=== PATIENT | male | born 1990 | race Caucasian/White ===

== ENCOUNTER 2024-06-16 17:26 | Emergency (ER) | payer OTHER, SELFPAY ==
[2024-06-16 17:39] VITALS: BP 146/99; PULSE 67; RESP 16; TEMP 36.9; O2SAT 97; BMI 27.0
--- NOTE | 2024-06-16 17:54 | ED.GENADULT ---
HPI - General Adult General Chief complaint: Chest Pain Stated complaint: chest pain Time Seen by Provider: 06/16/24 17:53 History of Present Illness HPI narrative: Pt reports medial chest pains for 1-2 weeks. Initially thought it was heartburn and disregarded. Did not take any meds to treat this or pain, states he normally avoids meds if able. Pt reports at 0900 this AM pain worsened, spread to left shoulder and neck. Called triage line and they advised pt to come to ER. Rates pain a 3/10 dull achy pain currently. Pain comes/goes in waves. 33 year old man presenting to the emergency department concern of chest pain that has been present intermittently over the last couple of weeks. 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 This pain when occurrs does not seem to be affected by his work or degree of exertion. He thought maybe this was heartburn but it seems to be occurring more frequently and today after initial occurrence just has not fully gone away. He describes this occurring as a pulse or a wave of pain in the mid chest radiating to the left a little bit and then today when it escalated spreading into the left shoulder area as well on the left side neck. He does not have any symptoms down his arms or legs. Does not seem to be associated with nausea. Quality is generally a deep ache like in my bones he says which then gets amplified as described. Tends to increase in this ?wave? of achy pain spreading a little bit over a course of 20 minutes maybe an hour and then resolved until today where he is left with this residual deep ache. Does not want to be a bother but today is says it is just more concerning. 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 Related Data Home Medications ?Medication ?Instructions ?Recorded ?Confirmed No Known Home Medications 06/16/24 06/16/24 Allergies Allergy/AdvReac Type Severity Reaction Status Date / Time No Known Drug Allergies Allergy Verified 06/16/24 20:33 Review of Systems Status of ROS: Reports: 6 or more systems reviewed and unremarkable except as noted in History and below [facility] Social History Smoking Status: Never smoker How often do you have a drink containing alcohol: never How often do you have six or more drinks on one occasion: Never AUDIT-C Alcohol total score: 0 Non-prescribed substance use: denies use Exam Narrative: Exam Narrative: Very pleasant. A tall. Well built/muscled. Dressed in work attire. Breathing easily. Lungs are clear. Heart in regular rate and rhythm. No murmur rub or gallop. Well-perfused peripherally with strong and equal radial pulses. Abdomen is soft nontender. There is no swelling about the neck or supraclavicular area. Strong equal carotid upstroke. No reproducible pain to palpation of the chest wall or upper back. Const: Vital Signs, click to edit/add: Vital Signs - 24 hr 06/16/24 17:39 Temperature 98.4 F Pulse Rate [Pulse Oximeter] 67 Respiratory Rate 16 Blood Pressure [Ri ght Upper Arm] 146/99 H Pulse Oximetry 97 Oxygen Delivery Me thod Room Air Documenting provider has reviewed patient's vital signs: yes Course Vital Signs Vital signs: Initial Vital Signs Temperature 98.4 F 06/16/24 17:39 Temperature Source Temporal Artery Scan 06/16/24 17:39 Pulse Rate 67 06/16/24 17:39 Respiratory Rate 16 06/16/24 17:39 Blood Pressure 146/99 H 06/16/24 17:39 Blood Pressure Mean 114 H 06/16/24 17:39 Blood Pressure Position Sitting 06/16/24 17:39 Pulse Oximetry 97 06/16/24 17:39 Oxygen Delivery Method Room Air 06/16/24 17:39 Vital Signs Temperature 98.4 F 06/16/24 17:39 Pulse Rate 67 06/16/24 17:39 Respiratory Rate 16 06/16/24 17:39 Blood Pressure 146/99 H 06/16/24 17:39 Pulse Oximetry 97 06/16/24 17:39 Oxygen Delivery Method Room Air 06/16/24 17:39 Temperature 98.4 F 06/16/24 17:39 Pulse Rate 64 06/16/24 20:39 Respiratory Rate 18 06/16/24 20:39 Blood Pressure 138/94 H 06/16/24 20:39 Pulse Oximetry 97 06/16/24 20:39 Oxygen Delivery Method Room Air 06/16/24 20:39 Medications Administered Medications: Discontinued Medications Generic Name Dose Route Start Last Admin Trade Name Freq PRN Reason Stop Dose Admin Sodium Chloride 500 mls @ 1,000 mls/hr 06/16/24 19:41 06/16/24 20:39 0.9 % Sodium Chloride 500 Ml IV 06/16/24 20:10 Infused .Q30M ONE Infusion Lidocaine/Aluminum/Magnesium/Simeth 30 ml 06/16/24 18:08 06/16/24 18:40 Gi Cocktail (Visc Lido/Antacid) 30 Ml PO 06/16/24 18:09 30 ml ONCE ONE Administration Medical Decision Making MDM Narrative Medical decision making narrative: I have EKG prior to going to see Mr. Gregory -- independently reviewed by me shows a normal sinus rhythm mode rate of 67. Without ischemic changes. Initial downward deflection but not qualifying as a Q-wave Could be arrhythmia. Possible dissection. Might be some secondary irritation to GERD. Would appear to be low risk for ischemic cardiovascular disease but I suppose it is possible as well. Other vascular spasm? Pneumothorax? Does not appear to be particularly anxious; do not think this is representing attacks of anxiety. With duration of symptoms if ischemia is occurred with think troponin be elevated at this point. Will check for ischemic cardiovascular injury. Chest x-ray independently reviewed by me shows normal airspace and mediastinum. Trial of GI cocktail did not affect his symptoms. Pain has remained now but a little less from his 3/10 now 2/10. Labs are reassuring including a normal D-dimer. Puzzling symptoms though cannot say for sure there has not been any sort of dissection. Discussed potentially imaging with this in mind with a CT angio CAP. He would like to proceed with this study. I did review CT imaging but deferring to radiology over-read as below INDICATION: R/O DISSECTION. (Sic) COMPARISON: None available. TECHNIQUE: CT of the chest prior to and following IV contrast administration, with post contrast imaging of the abdomen and pelvis following administration of 100 cc of Omnipaque 350 intravenous contrast. Please note that all CT scans at this facility use dose modulation, iterative reconstruction, and/or weight-based dosing when appropriate to reduce radiation dose to as low as reasonably achievable. FINDINGS: THORAX Thoracic Aorta: No evidence of thoracic aortic aneurysm, intramural hematoma, penetrating atherosclerotic ulcer, or dissection. Incidental findings described in the body of the report. Pulmonary Arterial Vasculature: Opacification of the pulmonary arterial tree is adequate for assessment of pulmonary embolism. No intraluminal pulmonary arterial filling defect is identified to indicate a pulmonary embolism. Visualized Lower Neck: No lower cervical adenopathy. Lungs: Medial segment right lower lobe ground-glass opacity abutting the major fissure associated with ipsilateral right inferior interlobar adenopathy. Differential diagnostic considerations include pneumonia and postobstructive pneumonitis. Pleura: No pleural effusion. No pneumothorax. Mediastinum: Right inferior interlobar (mediastinal lymph node station 11Ri), round opacity measuring 2.1 cm (6; 95) consistent with lymphadenopathy. Clustered right upper and lower paratracheal (2R/4R) and subcarinal (7) lymph nodes also suspicious for lymphadenopathy. Thoracic aorta and pulmonary trunk are normal in caliber. Heart and pericardium are without significant findings. Trachea and esophagus are normal in appearance. ABDOMEN NB: Timing of imaging relative to contrast bolus administration limits assessment of the abdominopelvic viscera and venous vasculature on this arterial phase CT angiogram. Abdominal Aorta: No aneurysm, intramural hematoma, penetrating atherosclerotic ulcer, or dissection. Chronic aortoiliac atherosclerotic mural calcification. Abdominal aorta and its major proximal branches including the celiac, superior mesenteric, inferior mesenteric, renal, and bilateral common iliac arteries are patent. Liver: Normal contour and attenuation. No significant focal lesion. No intrahepatic biliary ductal dilatation. Portal and hepatic veins are not enhanced on this arterial phase CT angiogram. Gallbladder: Normal size. No pericholecystic inflammatory changes. Normal common duct caliber. Pancreas: Normal contour and attenuation. No peripancreatic inflammatory changes. No significant focal lesion. Normal main duct caliber. Spleen: Not enlarged. No significant focal lesion. The splenic vein is not enhanced on this arterial phase CT angiogram. Adrenal Glands: Symmetrical adrenal glands. No significant focal lesion. Kidneys: Normal bilateral renal attenuation. No significant focal lesion. No nephrolith. No dilatation of the intrarenal collecting systems. No ureteral stone. Nondilated ureters. Renal veins are not enhanced on this arterial phase CT angiogram. Gastrointestinal tract: Normal caliber, attenuation and wall thickness of the gastrointestinal tract. No inflammatory changes. Normal small bowel mesentery. Normal appendix. Vascular: Inferior vena cava, portal and superior mesenteric veins are not opacified on this arterial phase CT angiogram and therefore their patency and caliber cannot be determined. Peritoneal Cavity/Retroperitoneum: No ascites. No adenopathy. PELVIS No bladder lesion is identified. No significant incidental findings related to the prostate or seminal vesicles. No ascites. No adenopathy. SKELETON AND BODY WALL Incidental lucent lesion in the left iliac wing which is slightly expansile and appears to have a ground-glass matrix. Differential diagnostic considerations include fibrous dysplasia and intraosseous lipoma. No cortical breach, periosteal reaction or soft tissue elements to indicate an aggressive lesion. Small fat containing umbilical hernia. IMPRESSION: 1. No evidence of thoracoabdominal aortic aneurysm, intramural hematoma, penetrating atherosclerotic ulcer, or dissection. 2. Right inferior interlobar (mediastinal lymph node station 11Ri), round opacity measuring 2.1 cm (series 6; image 95) consistent with lymphadenopathy. Ipsilateral clustered right upper and lower paratracheal (2R/4R) and subcarinal (7) mediastinal lymph nodes also suspicious for lymphadenopathy. 3. Medial segment right lower lobe ground-glass opacity abutting the major fissure associated with ipsilateral right inferior interlobar adenopathy. Differential diagnostic considerations include pneumonia and postobstructive pneumonitis. 4. Incidental lucent lesion in the left iliac wing which is slightly expansile and appears to have a ground-glass matrix. Eccentric fatty attenuation elements. Differential diagnostic considerations include fibrous dysplasia and intraosseous lipoma. No cortical breach, periosteal reaction or soft tissue elements to indicate an aggressive lesion. In the absence of an established history of malignancy this finding is consistent with a Bone-RADS category 1 lesion, likely benign. RECOMMENDATION: SHORT INTERVAL FOLLOW-UP CHEST CT WITH INTRAVENOUS CONTRAST IS RECOMMENDED IN 4-6 WEEKS FOLLOWING A TRIAL OF EMPIRIC ANTIMICROBIAL TREATMENT. I discussed all these findings with Mr. Gregory. He is aware of this left iliac wing lesion; appears to have been noticed as a teenager? Will treat for potential infection and then will need close follow-up regarding these lymph nodes. Was given copy of radiology reports. I did discuss this case and treatment regiment with our hospitalist See patient discharge plan for further discussion You have some copies of images. You have radiology over-read of your scan. Recommendations are for reimaging in 4-6 weeks to verify resolution. I would ask you to follow-up in about 4 weeks in clinic as discussed unless need to be seen sooner for symptoms like persistent and increasing pain, increasing shortness of breath, associated fever. Today prescribing a course of Levaquin. Lab Data Lab results reviewed: Yes I reviewed the patient's lab results Labs: Lab Results 06/16/24 06/16/24 Range/Units 18:25 21:45 WBC 6.31 (4.50-11.00) K/uL RBC 4.81 (4.30-5.90) m/uL Hgb 14.4 (13.5-17.5) gm/dL Hct 43.1 (37.0-53.0) % MCV 90 (80-100) fL MCH 30 (26-34) pg MCHC 33 (32-36) gm/dL RDW Coeff of [place]iana 12.4 (11.5-15.5) % Plt Count 268 (140-440) K/uL Neut % (Auto) 56.0 (42.0-72.0) % Lymph % (Auto) 30.9 (20-44) % Potter % (Auto) 10.1 (0.0-11.0) % Eos % (Auto) 2.5 (0.0-7.0) % Baso % (Auto) 0.3 (0.0-3.0) % Neut # (Auto) 3.53 (1.7-7.0) K/uL Lymph # (Auto) 1.95 (0.90-2.90) K/uL Potter # (Auto) 0.60 (0.00-0.90) K/UL Eos # (Auto) 0.16 (0.00-0.50) K/uL Baso # (Auto) 0.02 (0.00-0.30) K/uL Abs Immat Gran (auto) 0.01 (0.00-0.30) K/uL Imm/Tot Granulo (auto) 0.2 % D-Dimer Quant (PE/DVT) < 0.27 (0.00-0.50) ug/ml Sodium 137 (135-149) mmol/L Potassium 4.2 (3.6-5.1) mmol/L Chloride 104 (96-114) mmol/L Carbon Dioxide 24 (20-32) mmol/L Anion Gap 9 (7-15) mEq/L BUN 18 (5-24) mg/dL Creatinine 0.8 (0.5-1.5) mg/dL Estimated Creat Clear 151.27 Estimated GFR 119 ml/min Glucose 97 (60-115) mg/dL Calcium 9.3 (8.4-10.6) mg/dL Troponin I < 0.01 L (0.01-0.04) ng/mL C-Reactive Protein 0.6 (0.5-1.0) mg/dL Procalcitonin 0.11 (<0.50) ng/mL Lab Acknowledgement Test Added POC Troponin I 0.00 L (0.01-0.04) ng/ml Discharge Plan Discharge Clinical Impression: Mediastinal adenopathy, Inflammation of lung Patient Disposition: Home, Self-Care Condition: Stable Additional Instructions: You have some copies of images. You have radiology over-read of your scan. Recommendations are for reimaging in 4-6 weeks to verify resolution. I would ask you to follow-up in about 4 weeks in clinic as discussed unless need to be seen sooner for symptoms like persistent and increasing pain, increasing shortness of breath, associated fever. Today prescribing a course of Levaquin. Prescriptions: No Action No Known Home Medications Follow Up/Referrals: Dre Cavazos MD [Primary Care Provider] - Stand Alone Forms: [employer] Info Instructions
--- NOTE | 2024-06-16 18:10 | CRLHL7_ITS ---
For Patients: As a result of the Cures Act, medical imaging exams and procedure reports are released immediately into your electronic medical record. You may view this report before your referring provider. If you have questions, please contact your health care provider. INDICATION: Midsternal intermittent pain. TECHNIQUE: Chest 2 views. COMPARISON: None. FINDINGS: No pneumothorax or pleural effusion. Lungs are clear. Cardiac and mediastinal contours are within normal limits. Upper abdomen and osseous structures as imaged show no acute abnormality. IMPRESSION: No evidence of acute cardiopulmonary disease. Dictated by Adam Guajardo MD @ 06/16/2024 6:55:34 PM (Electronically Signed)
--- OUTSIDE RECORDS SUMMARY | 2024-06-16 18:32 | XMS_ITS | Encounter Summary ---
Author Organization [facility] Address [address] [place] [id number] Care Team Providers Care Note Taker Name Role Phone No Ref-Primary, Physician Primary Care Provider Essence Lopez CNP Unavailable [phone] Roscoe Ricks MD Unavailable Unavailable Encounter Details Date Type Department Care Team (Late st Contact Info) Description 04[place]05/20[place] [facility] [place] [address] [place] [id number] Kourtney Hazel RN Social History Tobacco Use Types Packs/Day Years Used Date Smoking Tobacco: Former Smokeless Tobacco: Current Chew Comments:3-4 per day (2008) Alcohol Use Standard Drinks/Week Comments No 0 (1 standard drink = 0.6 oz pur e alcohol) PHQ-2 Answer Date Recorded PHQ-2 Score 1 02/16/2021 Sex and Gender Information Value Date Recorded Sex Assigned at Male 02/15/2021 8:59 PM CDT Legal Sex 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 Gender Identity Male 02/15/2021 8:59 PM CDT Sexual Orientation Straight 02/15/2021 8: 59 PM CDT documented as of this encounter Plan of Treatment Not on file documented as of this encounter Visit Diagnoses Not on filedocumented in this encounter Additional Health Concerns Assessment Noted Time PHQ-9 Depression Total Score: 10 021 7:03 AM CDT documented as of this encounter Care Teams Note Taker Relationship Specialty Start Date End Date No Ref-Primary, Physician PCP - General 09/26/19 Essence Lopez, FITNESS ASSISTANT [address] [place] [address] Assigned PCP 03/05/21 04/05/24 Roscoe Ricks MD [address] [place] [address] Assigned Surgical Provider 04/30/21 12/14/22 documented as of this encounter
--- OUTSIDE RECORDS SUMMARY | 2024-06-16 18:32 | XMS_ITS | Referral Summary ---
Author Organization [facility] Address [address] [place] [address] Care Team Providers Care Air Bag Curer Name Role Phone No Ref-Primary, Physician Primary Care Provider Allergies Active Allergy Reactions Criticality Noted Date Comments No Known Drug Allergy 05/28/2003 Medications NO ACTIVE MEDICATIONS . 0 0 12/11/2006 Active Active Problems Problem Noted Date Diagnosed Date High triglycerides 02/21/2021 Migraine 08/28/2005 Overview (04/14/2015): Problem list name updated by automated process. Provider to review Resolved Problems Problem Noted Date Diagnosed Date Resolved Date CARDIOVASCULAR SCREENING; LD L GOAL LESS THAN 160 05/14/2010 02/21/2021 Tobacco use disorder 09/28/2008 009 NO ACTIVE PROBLEMS 09/24/2003 6 Immunizations Name Administration Dates Next Due Adenovirus, Type 4 and Type 7, Live, Oral 12/19/2011 Anthrax 02/04/2013,01/06/2013 DT (PEDS <7y) 02/16/2002 DTAP (<7y) 12/14/1994 HIB (PRP-T) 01/28/1991,08/04/1990 HIB, Unspecified 01/28/1991,08/04/1990 HPV9 01/03/2016 HepB 12/14/1994,07/27/1994,04/13/1994 HepB, Unspecified 12/14/1994 Hepatitis B, Peds 07/27/1994,04/13/1994 Historical DTP/aP 12/14/1994, 2,03/31/1990,02/03,1989 MMR 02/16/2002,01/28/1991 Meningococcal ACWY (Menactra ) 12/19/2011 OPV, trivalent, live 12/14/1994,08/14/18 92,02/03/1990,11/07 Pneumo Conj 13-V (2010&after) 12/19/2011 Polio, Unspecified 12/14/1994, 2,02/03/1990,11/07 Poliovirus, inactivated (IPV) 01/18/2012 Small Pox (Vaccinia) 03/31/2013 TD,PF 7+ (Tenivac) 02/16/2002 TDAP (Adacel,Boostrix) 09/12/2014,12/19/2011, Td (Adult), Adsorbed 09/03/2018 Twinrix A/B 10/09/2012,01/18/2012,12/19/2011 Typhoid IM 10/09/2012 Yellow Fever 02/18/2012 Social History Tobacco Use Types Packs/Day Years Used Date Smoking Tobacco: Former Smokeless Tobacco: Current Chew Tobacco Cessation:Ready to Q uit: No; Counseling Given: Yes Comments:3-4 per day (2008) Alcohol Use Standard Drinks/Week Comments No 0 (1 standard drink = 0.6 oz pur e alcohol) PHQ-2 Answer Date Recorded PHQ-2 Score 1 02/16/2021 Adolescent Education Answer Date Record ed Getting School Help Needed Not on file 04/07 Sex and Gender Information Value Date Recorded Sex Assigned at Male 02/15/2021 8:59 PM CDT 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 Gender Identity Male 02/15/2021 8:59 PM CDT Sexual Orientation Straight 02/15/2021 8: 59 PM CDT Last Filed Vital Signs Vital Sign Reading Time Taken Comments Blood Pressure 132/70 06/14/2021 8:59 AM POISING INSPECTOR Pulse 55 06/14/2021 8:59 AM POISING INSPECTOR Temperature 36 C (96.8 F) 06/14/2021 8:59 AM POISING INSPECTOR Respiratory Rate 20 02/16/2021 3:09 PM CDT Oxygen Saturation 96% 06/14/2021 8:59 AM POISING INSPECTOR Inhaled Oxygen Concentration - - Weight 89.1 kg (196 lb 8 oz) 02/16/2021 3:09 PM CDT Height 185.4 cm (6' 1) 02/16/2021 3:09 PM CDT Body Mass Index 25.93 02/16/2021 3:09 PM CDT Plan of Treatment Not on file Procedures Procedure Name Priority Date/Time Associated Diagnosis Comments LIPID REFLEX TO DIRECT LDL PANEL Routine 02/16/2021 3:37 PM CDT Screening cholesterol level from Last 3 Months or Most Recently Relevant to Health Maintenance Results * (ABNORMAL) Lipid panel reflex to direct LDL Fasting (02/16/2021 3:37 PM CDT) Cholesterol 189 <200 mg/dL 02/17/2021 4:53 PM CDT [facility] Comment: Age 0-19 years Desirable: <170 mg/dL Borderline high: 170-199 mg/dl High: >199 mg/dl Age 20 years and older Desirable: <200 mg/dL Triglycerides 281(H) <150 mg/dL 02/17/2021 4:53 PM CDT [facility] Comment: 0-9 years: Normal: Less than 75 mg/dL Borderline high: 75-99 mg/dL High: Greater than or equal to 100 mg/dL 0-19 years: Normal: Less than 90 mg/dL Borderline high: 90-129 mg/dL High: Greater than or equal to 130 mg/dL 20 years and older: Normal: Less than 150 mg/dL Borderline high: 150-199 mg/dL High: 200-499 mg/dL Very high: Greater than or equal to 500 mg/dL Direct Measure HDL 50 >=40 mg/dL 02/17/2021 4:53 PM CDT [facility] Comment: 0-19 years: Greater than or equal to 45 mg/dL Low: Less than 40 mg/dL Borderline low: 40-44 mg/dL 20 years and older: Female: Greater than or equal to 50 mg/dL Male: Greater than or equal to 40 mg/dL LDL Cholesterol Calculated 83 <=100 mg/dL 02/17/2021 4:53 PM CDT [facility] Comment: Age 0-19 years: Desirable: 0-110 mg/dL Borderline high: 110-129 mg/dL High: >= 130 mg/dL Age 20 years and older: Desirable: <100mg/dL Above desirable: 100-129 mg/dL Borderline high: 130-159 mg/dL High: 160-189 mg/dL Very high: >= 190 mg/dL Non HDL Cholesterol 139(H) <130 mg/dL 02/17/2021 4:53 PM CDT [facility] Comment: 0-19 years: Desirable: Less than 120 mg/dL Borderline high: 120-144 mg/dL High: Greater than or equal to 145 mg/dL 20 years and older: Desirable: 130 mg/dL Above Desirable: 130-159 mg/dL Borderline high: 160-189 mg/dL High: 190-219 mg/dL Very high: Greater than or equal to 220 mg/dL Patient Fasting > 8hrs? Yes 02/17/2021 4:53 PM CDT [facility] Blood STRUCTURE OF RIGHT UPPER LIMB / Unknown Venipuncture / Unknown 02/16/2021 3:37 PM CDT 02/16/2021 3:38 PM CDT Essence Lopez DYE TUB TENDER [facility] - BLOOD ORDERABLES Fi nal Result [facility] [address] Lab (no room number, 1st floor of clinic) [place] [address], [facility] [phone] from Last 3 Months or Most Recently Relevant to Health Maintenance Insurance [employer] Care Teams Air Bag Curer Relationship Specialty Start Date End Date No Ref-Primary, Physician PCP - General 09/26/19
--- OUTSIDE RECORDS SUMMARY | 2024-06-16 18:32 | XMS_ITS | Clinical Summary ---
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 Gender Identity Male 02/15/2021 8:59 PM CDT Sexual Orientation Straight 02/15/2021 8: 59 PM CDT Last Filed Vital Signs Vital Sign Reading Time Taken Comments Blood Pressure 132/70 06/14/2021 8:59 AM WINDOW GLASS INSTALLER Pulse 55 06/14/2021 8:59 AM WINDOW GLASS INSTALLER Temperature 36 C (96.8 F) 06/14/2021 8:59 AM WINDOW GLASS INSTALLER Respiratory Rate 20 02/16/2021 3:09 PM CDT Oxygen Saturation 96% 06/14/2021 8:59 AM WINDOW GLASS INSTALLER Inhaled Oxygen Concentration - - Weight 89.1 kg (196 lb 8 oz) 02/16/2021 3:09 PM CDT Height 185.4 cm (6' 1) 02/16/2021 3:09 PM CDT Body Mass Index 25.93 02/16/2021 3:09 PM CDT Plan of Treatment Health Maintenance Due Date Last Done Comments MIGRAINE ACTION PLAN 1989 HPV IMMUNIZATION (2 - Male 3-dose series) 01/31/2016 01/03/2016 ANNUAL REVIEW OF HM ORDERS 02/16/2022 02/16/2021 LIPID 02/16/2022 02/16/2021 YEARLY PREVENTIVE VISIT 02/16/2022 02/17/20, 01/01/2008, 01/22/2005 PHQ-2 (once per calendar year) 2023 02/16/2021, 02/16/2021 COVID-19 Vaccine ( - season) 2024 12/21/2020 INFLUENZA VACCINE (#1) 2024 ADVANCE CARE PLANNING 02/16/2026 02/16/2021 DTAP/TDAP/TD IMMUNIZATION (10 - Td or Tdap) 09/03/2028 09/03/2018, 09/12/2014, 12/19/2011, Additional history exists RSV VACCINE (1 - 1-dose 75+ series) 2064 MENINGITIS IMMUNIZATION Aged Out 12/19/2011 No l onger eligible based on patient's age to complete this topic Pneumococcal Vaccine: Pediatrics (0 to 5 Years) and At-Risk Patients (6 to 64 Years) Aged Out 12/19/2011 No longer eligible based on patient's age to complete this topic HEPATITIS B IMMUNIZATION Completed 013, 01/18/2012, 12/19/2011, Additional history exists HEPATITIS C SCREENING Discontinued HIV SCREENING Discontinued RSV MONOCLONAL ANTIBODY Aged Out No l onger eligible based on patient's age to complete this topic Procedures Procedure Name Priority Date/Time Associated Diagnosis [...] 3:37 PM CDT 02/16/2021 3:38 PM CDT us Essence Lopez FLU[facility] WORK[facility] LAB - BLOOD ORDERABLES Fi nal Result [facility] [address] Lab (no room number, 1st floor of clinic) [place] [address], [facility] [phone] from Last 3 Months or Most Recently Relevant to Health Maintenance Insurance [employer] Care Teams Tree Specialist Relationship Specialty Start Date End Date No Ref-Primary, Physician PCP - General 09/26/19
[2024-06-16 18:34] LABS: Basophils Absolute Auto 0.02 K/uL (0.00-0.30); Basophils Percent Auto 0.3 % (0.0-3.0); Eosinophils Absolute Auto 0.16 K/uL (0.00-0.50); Eosinophils Percent Auto 2.5 % (0.0-7.0); Hematocrit 43.1 % (37.0-53.0); Hemoglobin* 14.4 gm/dL (13.5-17.5); Immature Granulocytes Abs Auto 0.01 K/uL (0.00-0.30); Immature Granulocytes Pct Auto 0.2 %; Lymphocytes Absolute Auto 1.95 K/uL (0.90-2.90); Lymphocytes Percent Auto 30.9 % (20-44); Mean Corpuscular HGB Conc 33 gm/dL (32-36); Mean Corpuscular Hemoglobin 30 pg (26-34); Mean Corpuscular Volume 90 fL (80-100); Monocytes Percent Auto 10.1 % (0.0-11.0); Neutrophils Absolute Auto 3.53 K/uL (1.7-7.0); Platelet Count* 268 K/uL (140-440); RDW Coefficient of Variation % 12.4 % (11.5-15.5); Red Blood Count 4.81 m/uL (4.30-5.90); White Blood Count* 6.31 K/uL (4.50-11.00)
[2024-06-16 18:39] LABS: Slide Review Reflex No
[2024-06-16] MEDS: GI COCKTAIL (VISC LIDO/ANTACID) 30 ML PO (18:40)
[2024-06-16 18:50] LABS: Chloride* 104 mmol/L (96-114); Potassium* 4.2 mmol/L (3.6-5.1); Sodium* 137 mmol/L (135-149)
[2024-06-16 18:52] LABS: Creatinine* 0.8 mg/dL (0.5-1.5); Est. Creatinine Clearance* 151.27; Estimated Glomerular Filt Rate 119 ml/min
[2024-06-16 18:53] LABS: Anion Gap 9 mEq/L (7-15); Blood Urea Nitrogen* 18 mg/dL (5-24); Calcium* 9.3 mg/dL (8.4-10.6); Carbon Dioxide* 24 mmol/L (20-32); Glucose* 97 mg/dL (60-115)
[2024-06-16 19:05] LABS: Troponin I* < 0.01 ng/mL (0.01-0.04)
[2024-06-16 19:27] LABS: D Dimer Quantitative* < 0.27 ug/ml (0.00-0.50)
--- NOTE | 2024-06-16 19:41 | CRLHL7_ITS ---
For Patients: As a result of the 21st Century Cures Act, medical imaging exams and procedure reports are released immediately into your electronic medical record. You may view this report before your referring provider. If you have questions, please contact your health care provider. INDICATION: R/O DISSECTION. (Sic) COMPARISON: None available. TECHNIQUE: CT of the chest prior to and following IV contrast administration, with post contrast imaging of the abdomen and pelvis following administration of 100 cc of Omnipaque 350 intravenous contrast. Please note that all CT scans at this facility use dose modulation, iterative reconstruction, and/or weight-based dosing when appropriate to reduce radiation dose to as low as reasonably achievable. FINDINGS: THORAX Thoracic Aorta: No evidence of thoracic aortic aneurysm, intramural hematoma, penetrating atherosclerotic ulcer, or dissection. Incidental findings described in the body of the report. Pulmonary Arterial Vasculature: Opacification of the pulmonary arterial tree is adequate for assessment of pulmonary embolism. No intraluminal pulmonary arterial filling defect is identified to indicate a pulmonary embolism. Visualized Lower Neck: No lower cervical adenopathy. Lungs: Medial segment right lower lobe ground-glass opacity abutting the major fissure associated with ipsilateral right inferior interlobar adenopathy. Differential diagnostic considerations include pneumonia and postobstructive pneumonitis. Pleura: No pleural effusion. No pneumothorax. Mediastinum: Right inferior interlobar (mediastinal lymph node station 11Ri), round opacity measuring 2.1 cm (6; 95) consistent with lymphadenopathy. Clustered right upper and lower paratracheal (2R/4R) and subcarinal (7) lymph nodes also suspicious for lymphadenopathy. Thoracic aorta and pulmonary trunk are normal in caliber. Heart and pericardium are without significant findings. Trachea and esophagus are normal in appearance. ABDOMEN NB: Timing of imaging relative to contrast bolus administration limits assessment of the abdominopelvic viscera and venous vasculature on this arterial phase CT angiogram. Abdominal Aorta: No aneurysm, intramural hematoma, penetrating atherosclerotic ulcer, or dissection. Chronic aortoiliac atherosclerotic mural calcification. Abdominal aorta and its major proximal branches including the celiac, superior mesenteric, inferior mesenteric, renal, and bilateral common iliac arteries are patent. Liver: Normal contour and attenuation. No significant focal lesion. No intrahepatic biliary ductal dilatation. Portal and hepatic veins are not enhanced on this arterial phase CT angiogram. Gallbladder: Normal size. No pericholecystic inflammatory changes. Normal common duct caliber. Pancreas: Normal contour and attenuation. No peripancreatic inflammatory changes. No significant focal lesion. Normal main duct caliber. Spleen: Not enlarged. No significant focal lesion. The splenic vein is not enhanced on this arterial phase CT angiogram. Adrenal Glands: Symmetrical adrenal glands. No significant focal lesion. Kidneys: Normal bilateral renal attenuation. No significant focal lesion. No nephrolith. No dilatation of the intrarenal collecting systems. No ureteral stone. Nondilated ureters. Renal veins are not enhanced on this arterial phase CT angiogram. Gastrointestinal tract: Normal caliber, attenuation and wall thickness of the gastrointestinal tract. No inflammatory changes. Normal small bowel mesentery. Normal appendix. Vascular: Inferior vena cava, portal and superior mesenteric veins are not opacified on this arterial phase CT angiogram and therefore their patency and caliber cannot be determined. Peritoneal Cavity/Retroperitoneum: No ascites. No adenopathy. PELVIS No bladder lesion is identified. No significant incidental findings related to the prostate or seminal vesicles. No ascites. No adenopathy. SKELETON AND BODY WALL Incidental lucent lesion in the left iliac wing which is slightly expansile and appears to have a ground-glass matrix. Differential diagnostic considerations include fibrous dysplasia and intraosseous lipoma. No cortical breach, periosteal reaction or soft tissue elements to indicate an aggressive lesion. Small fat containing umbilical hernia. IMPRESSION: 1. No evidence of thoracoabdominal aortic aneurysm, intramural hematoma, penetrating atherosclerotic ulcer, or dissection. 2. Right inferior interlobar (mediastinal lymph node station 11Ri), round opacity measuring 2.1 cm (series 6; image 95) consistent with lymphadenopathy. Ipsilateral clustered right upper and lower paratracheal (2R/4R) and subcarinal (7) mediastinal lymph nodes also suspicious for lymphadenopathy. 3. Medial segment right lower lobe ground-glass opacity abutting the major fissure associated with ipsilateral right inferior interlobar adenopathy. Differential diagnostic considerations include pneumonia and postobstructive pneumonitis. 4. Incidental lucent lesion in the left iliac wing which is slightly expansile and appears to have a ground-glass matrix. Eccentric fatty attenuation elements. Differential diagnostic considerations include fibrous dysplasia and intraosseous lipoma. No cortical breach, periosteal reaction or soft tissue elements to indicate an aggressive lesion. In the absence of an established history of malignancy this finding is consistent with a Bone-RADS category 1 lesion, likely benign. RECOMMENDATION: SHORT INTERVAL FOLLOW-UP CHEST CT WITH INTRAVENOUS CONTRAST IS RECOMMENDED IN 4-6 WEEKS FOLLOWING A TRIAL OF EMPIRIC ANTIMICROBIAL TREATMENT. Please note that all CT scans at this facility use dose modulation, iterative reconstruction, and/or weight-based dosing when appropriate to reduce radiation dose to as low as reasonably achievable. Dictated by Philip Nicolas MD @ 06/16/2024 8:57:11 PM (Electronically Signed)
[2024-06-16] MEDS: 0.9 % SODIUM CHLORIDE 500 ML 500 ML 1000 ML IV (20:02)
[2024-06-16 20:39] VITALS: BP 138/94; PULSE 64; RESP 18; O2SAT 97
[2024-06-16 22:27] LABS: C Reactive Protein* 0.6 mg/dL (0.5-1.0)
[2024-06-16 22:41] LABS: Procalcitonin* 0.11 ng/mL (<0.50)
== END 2024-06-16 21:52 | disposition home or self-care (01) ==
PROVIDERS: Emergency Provider Family Medicine; PCP Family Medicine
DX: R59.0 Localized enlarged lymph nodes (principal); J98.4 Other disorders of lung
CPT/HCPCS: 36415; 71046; 71275; 74174; 80048; 84145; 84484; 85025; 85379; 86140; 93005; 99284; 99285; A9270; J7030; Q9967

== ENCOUNTER 2024-07-01 16:18 | Outpatient (CLI) | payer OTHER, SELFPAY | END 2024-07-01 16:19 | disposition home or self-care (01) | PROVIDERS: PCP Family Medicine; Visit Provider Internal Medicine | DX: R07.9 Chest pain, unspecified (principal) | CPT/HCPCS: 80053; 82550; 86038 ==

== ENCOUNTER 2024-07-28 12:39 | Outpatient (CLI) | payer OTHER, SELFPAY ==
[2024-07-28] MEDS: PERFLUTREN LIPID MICROSPHERES 2 ML VIAL IVP (13:20)
--- NOTE | 2024-07-28 14:22 | W.PM.STED ---
Stress Test Note Date Date of test: 07/28/24 Providers Primary care provider: Dre Cavazos Stress test physician: Kian Nascimento Stress Test Note Stress test ordered: Stress Echo Indication for test: Chest pain Stress test medicine: Definity Results discussion: This pleasant gentleman presents for the above test, after discussion the risks benefits and side effects he would like to proceed pretest EKG shows normal sinus rhythm, there is no acute ST wave changes, ventricular rate is 68, blood pressure 130 on 80. Following standard Reymundo protocol patient is exercised for a total 40 minutes 11 seconds and achieved a metabolic equivalent of 14.9 Mets with a maximum heart rate of 187, this is 118% of the maximum. Subjectively he has no chest pain shortness of breath in his conditioning was felt to be excellent, there is some very mild ST wave changes notable. Of 1-2 mm of depression noted inferiorly, and 1 mm noted laterally. Impression: Negative electrographic tracing, both objectively and subjectively negative Follow up suggested: Await echo portion, clinical correlation with this will be needed, patient exercised to a very high level, and was asymptomatic. He left this testing facility in good condition
== END 2024-07-28 13:54 | disposition home or self-care (01) ==
LOC: STRESS 12:40
PROVIDERS: PCP Family Medicine; Visit Provider Internal Medicine
DX: R07.9 Chest pain, unspecified (principal)
CPT/HCPCS: 93016; 93325; 93351; Q9957

== ENCOUNTER 2024-07-31 12:24 | Outpatient (CLI) | payer OTHER, SELFPAY ==
--- NOTE | 2024-07-31 13:00 | CRLHL7_ITS ---
For Patients: As a result of the Century Cures Act, medical imaging exams and procedure reports are released immediately into your electronic medical record. You may view this report before your referring provider. If you have questions, please contact your health care provider. Indication: Follow-up adenopathy Technique: CT Chest 75CC ISOVUE 370 Please note that all CT scans at this facility use dose modulation, iterative reconstruction, and/or weight-based dosing when appropriate to reduce radiation dose to as low as reasonably achievable. Comparison: CT 06/16/2024 Findings: Decreased airspace density in the right lower lobe interlobar space. Decreased adenopathy in the right hilum extending along the bronchovascular bundle, measuring up to 1.5 cm, previously measuring up to 2 cm. Decreased size of paratracheal lymph nodes. Similar prevascular lymph node in the anterior mediastinum. Upper abdomen unremarkable. No pleural effusion. No pneumothorax. Dependent atelectasis. No fracture. Impression: Decreased right hilar/right lower lobe bronchovascular adenopathy with decreased adjacent airspace density. Decreased right paratracheal adenopathy. Similar prevascular lymph node. Please note that all CT scans at this facility use dose modulation, iterative reconstruction, and/or weight-based dosing when appropriate to reduce radiation dose to as low as reasonably achievable. Dictated by Hemal Gomez MD @ 07/31/2024 1:09:21 PM (Electronically Signed)
== END 2024-07-31 12:25 | disposition home or self-care (01) ==
LOC: CT 12:25
PROVIDERS: PCP Family Medicine; Visit Provider Internal Medicine
DX: R07.9 Chest pain, unspecified (principal)
CPT/HCPCS: 71260; Q9967

== ENCOUNTER 2025-05-31 20:13 | Emergency (ER) | payer OTHER, SELFPAY ==
--- OUTSIDE RECORDS SUMMARY | 2025-05-31 20:16 | XMS_ITS | Clinical Summary ---
Author Organization [facility] Address [address] [place] [id number] Care Team Providers Care Butcher Chicken And Fish Name Role Phone No, Pcp [[id number]] Primary Care Provider Unavailabl e Allergies No known active allergies Medications triamcinolone (ARISTOCORT; KENALOG) 0.1 % creamIndication s:Dermatitis due to plant Apply topically to affected area(s) three times daily. 80 g 2 Active Active Problems Problem Noted Date Diagnosed Date High triglycerides 02/21/2021 Migraine 08/28/2005 Overview (03/13/2022): Problem list name updated by automated process. Provider to review Immunizations Immunization Administration Dates Next Due Adenovirus Type 4 and 7 12/19/2011 Anthrax Vaccine 02/04/2013,01/06/2013 DT (Age < 7 years) 02/16/2002 DTP 12/14/1994, 2,03/31/1990,02/03,1989 DTaP 12/14/1994 HIB PRP-T (ActHIB,Hiberix) 01/28/1991,08/04/1990 HPV 9 (Gardasil 9) 01/03/2016 HepA-HepB (Twinrix) 10/09/2012,01/18/2012,2011 Hepatitis B (Peds) 07/27/1994,04/13/1994 Hepatitis B, Unspecified 12/14/1994,07/27/1994,0 04/13/1994 Hib Conjugate, Unspecified 01/28/1991,08/04/1990 Inactivated Polio Vaccine 01/18/2012 MMR 02/16/2002,01/28/1991 Meningococcal Vaccine (Menactra) 12/19/2011 Oral Polio Vaccine 12/14/1994, 2,02/03/1990,11/07 Pneumococcal conj 13-Valent (Prevnar 13) 12/19/2011 Polio Virus, Unspecified 12/14/1994,07/17,02/03/1990,11/07 Smallpox (Vaccinia) Live [id number] 03/31/2013 Td (Age >=7 Years) 09/03/2018 Td, Preservative Free (age >= 7 Years) 2 Tdap 09/12/2014,12/19/2011,12/31/2007 Typhoid (injectable) 10/09/2012 Yellow Fever 02/18/2012 Family History Medical History Relation Name Comments Diabetes type II Father Diabetes type I Other nephew Diabetes type II Paternal Uncle Relation Name Status Comments Father Other nephew Alive Paternal Uncle Alive Social History Tobacco Use Types Packs/Day Years Used Date Smoking Tobacco: Former Smokeless Tobacco: Former Chew Tobacco Cessation:Counseling Given: Yes Alcohol Use Standard Drinks/Week Comments No 0 (1 standard drink = 0.6 oz pur e alcohol) Social Connections Answer Date Recorded Frequency of Communication with Friends and Fami ly Not on file 03/13/2022 Sex and Gender Information Value Date Recorded Sex Assigned at Not on file 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 Gender Identity Not on file Sexual Orientation Not on file Obstetrics History Last Filed Vital Signs Vital Sign Reading Time Taken Comments Blood Pressure 122/80 03/13/2022 10:16 AM CDT Pulse 70 03/13/2022 10:16 AM CDT Temperature 36.8 C (98.3 F) 03/13/2022 10:16 AM CDT Respiratory Rate 12 04/16/2011 9:18 AM CDT Oxygen Saturation 98% 03/13/2022 10:16 AM CDT Inhaled Oxygen Concentration - - Weight 86 kg (189 lb 8 oz) 03/13/2022 10:16 AM C DT Height 188 cm (6' 2.02) 09/03/2018 9:39 AM STORE ADMINISTRATOR Body Mass Index 24.32 09/03/2018 9:39 AM STORE ADMINISTRATOR Plan of Treatment Health Maintenance Due Date Last Done Comments Depression screening for age 12+ 2001 HIV for age 15-65 2004 Hepatitis C screening for age 18-79 2007 HPV series for age 9-45 (2 - Male 3-dose series) 01/31/2016 01/03/2016 BMI (ht and wt on same day) for age 18+ 09/03/2019 09/03/2018, 09/02/2018, 04/30/2016 Influenza Vaccine (#1) 2025 Lipids for age 35-44 03/13/2027 03/13/2022 Tetanus booster 09/03/2028 09/03/2018, 07/2014, 12/19/2011, Additional history exists RSV vaccine for adults or (1 - 1-dose 75+ series) 2064 Pneumococcal series for age 6-49 Aged Out 12/19/2011 No longer eligible based on patient's age to complete this topic Hepatitis B series for 19+ Completed 10/09, 01/18/2012, 12/19/2011, Additional history exists Procedures Procedure Name Priority Date/Time Associated Diagnosis Comments LIPID PANEL W REFLEX MEASURED LDL Routine 03/13/2022 10:58 AM CDT High triglycerides from Last 3 Months or Most Recently Relevant to Health Maintenance Results * LIPID PANEL W REFLEX MEASURED LDL (03/13/2022 10:58 AM CDT) CHOLESTEROL,TOTAL 177 100 - 199 mg/dL 03/13/2022 6:08 PM CDT [facility] TRIGLYCERIDES 79 <150 mg/dL 03/13/2022 6:08 PM CDT [facility] HDL CHOLESTEROL 53 >40 mg/dL 6:08 PM CDT [facility] NON-HDL CHOLESTEROL 124 <145 mg/dl 03/13/2022 6:08 PM CDT [facility] CHOL/HDL RATIO 3.34 <4.50 03/13/2022 6:08 PM CDT [facility] LDL CHOLESTEROL 108 <=130 mg/dL 03/13/2022 6:08 PM CDT [facility] VLDL CHOLESTEROL 16 <=30 mg/dL 03/13/2022 6:08 PM CDT [facility] PROVIDER ORDERED STATUS FASTING 03/13/2022 6:08 PM CDT [facility] Blood BLOOD SPECIMEN / Unknown Venipuncture / Unknown 03/13/2022 10:58 AM CDT 03/13/2022 10:58 AM CDT Libia KWONG CHEMISTRY Final Resu lt [facility] [address] [place] [address], from Last 3 Months or Most Recently Relevant to Health Maintenance Insurance [facility] Advance Directives * Full Code (Latest Code Status on File) Date Activated Date Inactivated Comments 01/02/2008 2:16 PM 01/02/2008 7:24 PM Care Teams Butcher Chicken And Fish Relationship Specialty Start Date End Date NO, PCP [[id number]] PCP - General 04/27/16
[2025-05-31 20:18] VITALS: BP 141/90; PULSE 84; RESP 18; TEMP 36.8; O2SAT 95; BMI 27.6
--- NOTE | 2025-05-31 20:57 | ED.NURSE ---
Left forearm laceration and thumb cleased with hibaclens and saline. States his tetanus was less than 10 years. Bleeding controlled
[2025-05-31] MEDS: TETANUS-DIPHTHERIA TOXOIDS/PF 0.5 ML SYRINGE IM (21:09)
--- NOTE | 2025-05-31 21:11 | ED.NURSE ---
bandage placed on left thumb laceration
--- NOTE | 2025-06-01 01:46 | ED.GENADULT ---
HPI - General Adult General Chief complaint: Extremity Pain/Injury, Upper Stated complaint: stabbed self in left arm Time Seen by Provider: 05/31/25 20:34 Source: patient Mode of arrival: ambulatory History of Present Illness HPI narrative: 34-year-old male presents to the emergency department after a laceration injury to both his left thumb and left forearm while helping skin a deer, processing it for a family friend. Patient process is several dear per year both for friends and also for his own personal meat supply. He is very experienced with a knife typically. He denies any intentional harm. Reports that he initially received a puncture injury from the knife to his left forearm, noted lots of bleeding. He tried to finish working but with the bleeding, it was difficult and the knife slipped, causing a laceration to his medial middle phalanx area of the left thumb. Tried applying pressure head that does temporarily controlled the bleeding but bleeding recurs as soon as pressure is removed. His last tetanus shot was about 6 years ago. He denies any neurological weakness, numbness or loss of function of any of the fingers or the arm. Does not use any anticoagulants. No prior history of surgery or major injury to this area in the past. 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 He does admit that the puncture wound on the forearm was very deep, probably about an inch and bled significantly. He shows me a picture of the cutting room floor. Bleeding has slowed considerably. No history of coagulopathy or bleeding disorders. Reports benign past medical history, no major long-term health problems. No allergies. No long-term medications. Related Data Home Medications ?Medication ?Instructions ?Recorded ?Confirmed No Known Home Medications 05/31/25 05/31/25 Allergies Allergy/AdvReac Type Severity Reaction Status Date / Time No Known Drug Allergies Allergy Verified 05/31/25 20:22 [facility] Medical History Chest pain ?R07.9 - Chest pain, unspecified (ICD-10) Social History What is your current living situation?: I presently have a place to live Problems where you live: no known problems In the past 12 months, utilities in danger of being shut off: no In past 12 months, lack of transportation kept you from medical appts, meetings, work, or getting things needed for daily living: no In the past 12 mos, have been you worried that your food would run out before you had money to buy more?: never true In the past 12 mos, the food you bought just didn't last and you didn't have money to buy more?: never true Smoking Status: Never smoker How often do you have a drink containing alcohol: never How often do you have six or more drinks on one occasion: Never AUDIT-C Alcohol total score: 0 Non-prescribed substance use: denies use How often does anyone, including family, friends and others, physically hurt you: never How often does anyone, including family, friends and others, insult or talk down to you: never How often does anyone, including family, friends and others, threaten you with harm: never How often does anyone, including family, friends and others, scream or curse at you: never Exam Const: Vital Signs, click to edit/add: Vital Signs - 24 hr 05/31/25 20:18 Temperature 98.3 F Pulse Rate [Pulse Oximeter] 84 Respiratory Rate 18 Blood Pressure [Ri ght Upper Arm] 141/90 H Pulse Oximetry 95 Oxygen Delivery Me thod Room Air Documenting provider has reviewed patient's vital signs: yes Common normals: no apparent distress General appearance: comfortable and well kempt Other: Good historian, no intoxication. HENMT: Common normals: normocephalic, moist oral mucous membranes and oropharynx normal Head and scalp: normocephalic Face and sinus: normal facial exam Eye: Common normals: conjunctivae normal General eye: normal appearance of both eyes Conjunctiva: conjunctiva(e) normal Neck & C-Spine: General: normal visual inspection Resp: Common normals: normal respiratory effort Effort & inspection: able to speak in complete sentences Cardio: Other: Regular radial pulses on left side. Normal capillary refill in all fingers on left side. Extremity: Other: Left upper extremity with normal range of motion of elbow, wrist, hand. No sensory deficits to the fingers. Full range of motion in the thumb with opposition, flexion and extension. Normal sensation in all fingertips. Normal range of motion of all of the other fingers. Along the medial aspect of the middle phalanx near the knuckle of the thumb is a 2 cm dermal thickness laceration. A tiny bit of venous bleeding at the corner noted. No evidence of tendon involvement. On the ventral surface of the left forearm there is a 1 cm puncture wound that does probe about 1 cm deep. It has some very slight oozing but no heavy bleeding identified. It is muscular depth but I do not see any signs of vascular or neurological involvement. Psych: Appearance: well kempt Attitude: engaged Activity/motor behavior: appropriate eye contact Skin: Narrative: Other than the left forearm and left thumb, no other areas of injury identified. Course Course ED Course: 34-year-old male with acute laceration to left forearm and left thumb without any evidence of vascular, neurological or functional deficits. Recommended suture closure. Procedure: Laceration repair. Verbal consent obtained. Thumb was examined 1st, cleansed with alcohol wipe and then 1 mL of 2% lidocaine without epinephrine was injected along each of the medial and lateral aspects of the thumb and 1 mL directly under the site of laceration with good anesthesia. Forearm wound was injected with 1 mL of 2% lidocaine without epinephrine directly under the wound with good anesthesia as well. Forearm lesion became numb very quickly, cleansed with Betadine x3, a single horizontal mattress suture of 4-0 nylon suture was placed, drawing the deep wound together well with good hemostasis. Covered with antibiotic ointment and Band-Aid. The lesion with good anesthesia by the time the forearm lesion was closed, cleansed with Betadine x3. Three simple interrupted 5 0 nylon sutures were placed with good hemostasis and cosmetic closure. Full range of motion, function, sensation was confirmed following repair of the thumb. Covered with antibiotic ointment and gauze wrap. I rechecked the forearm lesion 30 minutes later and do not appreciate any signs of significant hematoma. No swelling, no bruising. I think that if the patient did have a slight vascular injury that caused so much bleeding, it has closed over. I counseled the patient on watching for any signs of swelling, bogginess or severe pain that could indicate return of bleeding. I do have concerns for risk of infection. He will start Augmentin 875 p.o. b.i.d., 1st dose given here in the ED. Tetanus shot is 6 years old, this will be updated. Alarm symptoms reviewed that would warrant ED re-evaluation. Keep the current bandages on overnight, suture removal in 5-7 days. If removed on the early and, will need Steri-Strips to cover. Please bring his discharge paperwork to his suture removal appointment, will need to call for an appointment. Alarm symptoms of infection reviewed as indications to come back to the ED. patient verbalizes understanding and agreement. Vital Signs Vital signs: Initial Vital Signs Temperature 98.3 F 05/31/25 20:18 Temperature Source Temporal Artery Scan 05/31/25 20:18 Pulse Rate 84 05/31/25 20:18 Respiratory Rate 18 05/31/25 20:18 Blood Pressure 141/90 H 05/31/25 20:18 Blood Pressure Mean 107 H 05/31/25 20:18 Blood Pressure Position Sitting 05/31/25 20:18 Pulse Oximetry 95 05/31/25 20:18 Oxygen Delivery Method Room Air 05/31/25 20:18 Vital Signs Temperature 98.3 F 05/31/25 20:18 Pulse Rate 84 05/31/25 20:18 Respiratory Rate 18 05/31/25 20:18 Blood Pressure 141/90 H 05/31/25 20:18 Pulse Oximetry 95 05/31/25 20:18 Oxygen Delivery Method Room Air 05/31/25 20:18 Temperature 98.3 F 05/31/25 20:18 Pulse Rate 84 05/31/25 20:18 Respiratory Rate 18 05/31/25 20:18 Blood Pressure 141/90 H 05/31/25 20:18 Pulse Oximetry 95 05/31/25 20:18 Oxygen Delivery Method Room Air 05/31/25 20:18 Medications Administered Medications: Discontinued Medications Generic Name Dose Route Start Last Admin Trade Name Vidalq PRN Reason Stop Dose Admin Amoxicillin/Clavulanate Potassium 875 mg 05/31/25 21:02 05/31/25 21:09 Amoxicillin/Clavulanate 875 Mg/125 Mg Tablet PO 05/31/25 21:03 875 mg ONCE ONE Administration Tetanus/Diphtheria Toxoids Adsorbed 0.5 ml 05/31/25 21:02 05/31/25 21:09 Tetanus-Diphtheria Toxoids/Pf 0.5 Ml Syringe IM 05/31/25 21:03 0.5 ml .ONCE ONE Administration Discharge Plan Discharge Clinical Impression: Hand laceration Patient Disposition: Home, Self-Care Condition: Improved Instructions: Laceration (DC) Additional Instructions: As we discussed, keep a close eye on that forearm. If you start having a lot more pain and it starts getting very swollen more that about a half dollar sized amount underneath those sutures, please return to the emergency room. Please leave the current dressings on for overnight, tomorrow morning you may switch to antibiotic ointment and a large Band-Aid to cover. Just be gentle with your hand but you should be able to do most things with it. Try to avoid tight gripping any vibrating tools for the 1st 48 hours. This skin will actually close pretty quickly in this area, you could have the stitches removed either Saturday or Saturday. I would advise them putting Steri-Strips over both areas once the sutures are removed. Please gently wash with soap and water every day and cover with a fresh layer of antibiotic ointment and a clean Band-Aid. Because the wound on the forearm was so deep, I have started you on antibiotics. Take 1 pill 2 times per day but you do only need 5 days worth. You will have leftover antibiotics. Please bring this paper with you to the stitch removal appointment that you will need to make. For pain, it is okay to use a 1000 mg of Tylenol and/or 600 mg of ibuprofen every 6 hours if needed. It is okay to use gentle sleep aids like Benadryl, melatonin tonight if needed as well. I did not detect any signs of blood vessel or nerve injuries. If you have loss of function, this would need to be re-evaluated urgently. Activity Level: Activity as Tolerated Discharge Diet: Regular Prescriptions: No Action No Known Home Medications Follow Up/Referrals: Dre Cavazos MD [Primary Care Provider, Family Practice] Stand Alone Forms: Art Qualified Info Instructions
== END 2025-05-31 22:03 | disposition home or self-care (01) ==
PROVIDERS: Emergency Provider Family Medicine; PCP Family Medicine
DX: S51.812A Laceration without foreign body of left forearm, initial encounter (principal); S61.012A Laceration without foreign body of left thumb without damage to nail, initial encounter; W26.0XXA Contact with knife, initial encounter; Z23 Encounter for immunization
CPT/HCPCS: 12002; 90471; 90714; 99283; A9270